=== PATIENT | female | born 1965 | race Caucasian/White ===

== ENCOUNTER 2020-08-23 07:27 | Outpatient (CLI) | payer MEDICARE, MEDICAID, SELFPAY | END 2020-08-23 07:28 | disposition home or self-care (01) | PROVIDERS: PCP Family Medicine; Visit Provider Family Medicine | DX: H91.93 Unspecified hearing loss, bilateral (principal) | CPT/HCPCS: 99199 ==

== ENCOUNTER 2020-09-17 08:08 | Outpatient (CLI) | payer MEDICARE, MEDICAID, SELFPAY | END 2020-09-17 08:09 | disposition home or self-care (01) | PROVIDERS: PCP Family Medicine; Visit Provider Family Medicine | DX: H91.93 Unspecified hearing loss, bilateral (principal) | CPT/HCPCS: 92552; 92555; 92567 ==

== ENCOUNTER 2021-08-28 09:13 | Outpatient (CLI) | payer MEDICARE, MEDICAID, SELFPAY | END 2021-08-28 09:14 | disposition home or self-care (01) | LOC: ANHAUDIO 09:14 | PROVIDERS: PCP Family Medicine; Referring Provider Family Medicine; Visit Provider Family Medicine | DX: Z01.10 Encounter for examination of ears and hearing without abnormal findings (principal); H91.93 Unspecified hearing loss, bilateral | CPT/HCPCS: 92555; 92567; 92588 ==

== ENCOUNTER 2023-10-15 09:57 | Outpatient (CLI) | payer MEDICARE, MEDICAID, SELFPAY | END 2023-10-15 09:58 | disposition home or self-care (01) | LOC: ANHAUDIO 09:57 | PROVIDERS: PCP Family Medicine; Visit Provider Family Medicine | DX: H61.23 Impacted cerumen, bilateral (principal) | CPT/HCPCS: 92555; 92567; 92587 ==

== ENCOUNTER 2024-11-08 09:02 | Outpatient (CLI) | payer MEDICARE, MEDICAID, SELFPAY ==
--- OUTSIDE RECORDS SUMMARY | 2024-11-08 09:15 | XMS_ITS | Patient Health Record ---
Author Organization [employer] [facility] Address [address] [place] [address] Care Team Providers Care Jukebox Routeman Name Role Phone LIZBET BLACKWELL Unavailable [phone] Edy Izquierdo Unavailable Unavailable Allergies Allergen (clinical drug ingredient) Drug/Non Drug Allergy documented on EMR Reaction Allergy Type Onset Date Status calcium channel luis (FN) Calcium Channel Blockers N-Modera Drug Allergy 10/18/2021 Active Hydantoin derivative (substance) Hydantoins [facility]era Drug Allergy 10/18/2021 Active Substance with sulfonamide structure and antibacterial mechanism of action (substance) Sulfa Antibiotics N-Modera Drug Allergy 10/18/2021 Active Reason For Referral No Information Medications Medication SIG (Take, Route, Frequency, Duration) Notes Start Date End Date Status CETRRISINE HCL ; Duration: -2 *Reorder from [facility] for eRx and Interaction Alerts* 10/18/2021 Active OCUVITE ADULT 50 T ; Duration: -2 *Reorder from [facility] for eRx and Interaction Alerts* 10/18/2021 Active SERTRALINE ; Duration: -2 *Reorder from [facility] for eRx and Interaction Alerts* 10/18/2021 Active CLOTRIMAZOLE CREAM 1% ; Duration: -2 *Reorder f rom [facility] for eRx and Interaction Alerts* 10/18/2021 Active OYST-SIMRAN-D ; Duration: -2 *Reorder from [facility] for eRx and Interaction Alerts* 10/18/2021 Active carBAMazepine ; Duration: -2 *Pick strength-f orm from [facility] for eRX* 10/18/2021 Active risperiDONE ; Duration: -2 *Pick strength-f orm from [facility] for eRX* 10/18/2021 Active Problems Problem Type SNOMED Code ICD Code Onset Dates Problem Status W/U Status Risk Notes Problem Onychogryphosis (21426234) 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) Active confirmed Problem Tinea unguium (011533664) Tinea unguium (B35.1) 08/26/19 Active confirmed Problem Peripheral vascular disease (486270790) Other specified peripheral vascular diseases (I73.89) 05/17/19 Active confirmed Problem Callosity (969887976) Corns and callosities (L84) 08/26/19 Active confirmed Problem Acquired hallux valgus (27988137) Hallux valgus (acquired), right foot (M20.11) 01/05/20 Active confirmed Problem Seizure (47451761) Unspecified convulsions (R56.9) 01/05/20 Active confirmed Vital Signs Heart Rate 77 /min 10/03/2024 Respiratory Rate 16 /min 11/16/2023 Height-cm 170.18 cm 10/03/2024 Blood pressure diastolic 89 mm Hg 10/03/2024 Weight-kg 95.26 kg 10/03/2024 Height 67 in 10/03/2024 Blood pressure systolic 132 mm Hg 10/03/2024 Weight 210 lbs 10/03/2024 BMI 32.89 kg/m2 10/03/2024 Encounters Encounter Location Date Provider Diagnosis [address] [address] 11/16/2023 LIZBET COCKAYNE Onychogryphosis L60. 2 ; Other specified peripheral vascular diseases I73.89 and Corns and callosities L84 [address] [address] 02/01/2024 LIZBET COCKAYNE Onychogryphosis L60. 2 ; Other specified peripheral vascular diseases I73.89 and Corns and callosities L84 [address] [address] 05/02/2024 LIZBET COCKAYNE Onychogryphosis L60. 2 ; Other specified peripheral vascular diseases I73.89 and Corns and callosities L84 [address] [address] 08/01/2024 LIZBET BLACKWELL Onychogryphosis L60. 2 ; Other specified peripheral vascular diseases I73.89 and Corns and callosities L84 [facility] [address] [place] [address] 10/03/2024 LIZBET BLACKWELL Onychogryphosis L60. 2 ; Other specified peripheral vascular diseases I73.89 and Corns and callosities L84 Assessments Encounter Date Diagnosis (ICD Code) Assessment Notes Treatment Notes Treatment Clinical Notes Section Notes 11/16/2023 Onychogryphosis (ICD-10 - L60.2) 02/01/2024 Onychogryphosis (ICD-10 - L60.2) 05/02/2024 Onychogryphosis (ICD-10 - L60.2) 08/01/2024 Onychogryphosis (ICD-10 - L60.2) 10/03/2024 Onychogryphosis (ICD-10 - L60.2) 08/01/2024 Other specified peripheral vascular diseases (ICD-10 - I73.89) We discussed preventative foot care. We discussed preventative foot hygiene. We instructed the patient on how to care for their feet, and to contact the office if any wounds develop, or signs of infection arise. The nails were debrided of all fungal material and debris. Debridement included a reduction in bulk of the nail by use of a sharp tooth cutter and/or rotary instrument. Reason for debridement include relief of pain, treatment of infection, temporary removal of an anatomic deformity such as onychauxis or onychocryptosis, exposure of subungual conditions for the purpose of treatment as well as diagnosis, and/or as a prophylactic measure to prevent further problems, such as subungual ulceration in an insensate patient with onychauxis. Antiseptic was applied. Debrided 10 nails. 10/03/2024 Other specified peripheral vascular diseases (ICD-10 - I73.89) We discussed preventative foot care. We discussed preventative foot hygiene. We instructed the patient on how to care for their feet, and to contact the office if any wounds develop, or signs of infection arise. The nails were debrided of all fungal material and debris. Debridement included a reduction in bulk of the nail by use of a sharp tooth cutter and/or rotary instrument. Reason for debridement include relief of pain, treatment of infection, temporary removal of an anatomic deformity such as onychauxis or onychocryptosis, exposure of subungual conditions for the purpose of treatment as well as diagnosis, and/or as a prophylactic measure to prevent further problems, such as subungual ulceration in an insensate patient with onychauxis. Antiseptic was applied. Debrided 10 nails. 02/01/2024 Other specified peripheral vascular diseases (ICD-10 - I73.89) We discussed preventative foot care. We discussed preventative foot hygiene. We instructed the patient on how to care for their feet, and to contact the office if any wounds develop, or signs of infection arise. The nails were debrided of all fungal material and debris. Debridement included a reduction in bulk of the nail by use of a sharp tooth cutter and/or rotary instrument. Reason for debridement include relief of pain, treatment of infection, temporary removal of an anatomic deformity such as onychauxis or onychocryptosis, exposure of subungual conditions for the purpose of treatment as well as diagnosis, and/or as a prophylactic measure to prevent further problems, such as subungual ulceration in an insensate patient with onychauxis. Antiseptic was applied. Debrided 10 nails. No callus debridement performed today. 05/02/2024 Other specified peripheral vascular diseases (ICD-10 - I73.89) We discussed preventative foot care. We discussed preventative foot hygiene. We instructed the patient on how to care for their feet, and to contact the office if any wounds develop, or signs of infection arise. The nails were debrided of all fungal material and debris. Debridement included a reduction in bulk of the nail by use of a sharp tooth cutter and/or rotary instrument. Reason for debridement include relief of pain, treatment of infection, temporary removal of an anatomic deformity such as onychauxis or onychocryptosis, exposure of subungual conditions for the purpose of treatment as well as diagnosis, and/or as a prophylactic measure to prevent further problems, such as subungual ulceration in an insensate patient with onychauxis. Antiseptic was applied. Debrided 10 nails. The hyperkeratotic lesions were sharply pared. The callus or corns pared are not associated within the toenail complex and are proximal to the interphalangeal joint or are proximal to the distal phalanx. The services performed were on separate sites and not located on a toe. Antiseptic was applied. Pared two hyperkeratotic lesions that are on separate sites of service and not located on a toe. 11/16/2023 Other specified peripheral vascular diseases (ICD-10 - I73.89) We discussed preventative foot care. We discussed preventative foot hygiene. We instructed the patient on how to care for their feet, and to contact the office if any wounds develop, or signs of infection arise. The nails were debrided of all fungal material and debris. Debridement included a reduction in bulk of the nail by use of a sharp tooth cutter and/or rotary instrument. Reason for debridement include relief of pain, treatment of infection, temporary removal of an anatomic deformity such as onychauxis or onychocryptosis, exposure of subungual conditions for the purpose of treatment as well as diagnosis, and/or as a prophylactic measure to prevent further problems, such as subungual ulceration in an insensate patient with onychauxis. Antiseptic was applied. Debrided 10 nails. No callus debridement performed today. 02/01/2024 Corns and callosities (ICD-10 - L84) 11/16/2023 Corns and callosities (ICD-10 - L84) 05/02/2024 Corns and callosities (ICD-10 - L84) 08/01/2024 Corns and callosities (ICD-10 - L84) 10/03/2024 Corns and callosities (ICD-10 - L84) Plan Of Treatment Next Appt Details Provider Name:LIZBET SINGLETARY, 12/12/2024 03:45:00 PM, [address] [place], [address], Insurance Providers Payer Name Payer Address Payer Phone Subscriber Number Group Number Insured Name Patient Relationship to Insured Coverage Start Date Coverage End Date [place] [address] [place] [address] [id number] ÁNGEL REECE Self - patient is the insured [id number] [address] [address] [place] [address] [phone] [id number] ÁNGEL REECE Self - patient is the insured
== END 2024-11-08 09:03 | disposition home or self-care (01) ==
LOC: ANHAUDIO 09:03
PROVIDERS: PCP Family Medicine; Visit Provider Family Medicine
DX: Z01.10 Encounter for examination of ears and hearing without abnormal findings (principal); H91.93 Unspecified hearing loss, bilateral
CPT/HCPCS: 92557; 92567